=== PATIENT | female | born 1945 | race Caucasian/White ===

== ENCOUNTER 2022-01-11 07:35 | Outpatient (CLI) | payer OTHER, MEDICARE, SELFPAY ==
[2022-01-11 08:19] LABS: Anion Gap 6 mmol/L (8-16); Blood Urea Nitrogen 16 mg/dL (7-17); Calcium 9.7 mg/dL (8.4-10.2); Carbon Dioxide 29 mmol/L (22-30); Chloride 103 mmol/L (98-107); Estimated Glomerular Filt Rate 54; Glucose 121 mg/dL (65-110); Potassium 3.7 mmol/L (3.4-5.0); Sodium 138 mmol/L (137-145)
== END 2022-01-11 07:36 | disposition home or self-care (01) ==
PROVIDERS: Anesthesiology; PCP Family Medicine; Visit Provider Plastic Surgery
DX: Z01.812 Encounter for preprocedural laboratory examination (principal); Z51.81 Encounter for therapeutic drug level monitoring; Z79.899 Other long term (current) drug therapy
CPT/HCPCS: 36415; 80048

== ENCOUNTER 2022-01-13 00:14 | Day surgery (SDC) | payer OTHER, MEDICARE, SELFPAY ==
[2022-01-07 10:52] VITALS: BMI 32.3
--- NOTE | 2022-01-12 13:38 | WPDANESEPPF ---
Anes - Initial Pre Proc Eval Procedure: Operation Date: 01/13/22 07:30 Proposed Procedures p Excision of Basal Cell Carcinoma Left Forehead with Frozen Section, Possible Full Thickness Skin Graft or Local Tissue Transfer - Kevin Pedro MD Date/Time: 01/12/22 13:38 Surgeon: Kevin Pedro MD Pre Op Diagnosis: basal cell carcinoma left forehead Patient Data Age: 76 Gender: F Height: 1.68 m Weight: 90.9 kg Allergies Allergy/AdvReac Type Severity Reaction Status Date / Time No Known Allergies Allergy Verified 01/13/22 06:40 Home Medications Medication Instructions Recorded Confirmed Type amoxicillin 875 mg-potassium 1 tablet DAILY 01/07/22 01/07/22 History clavulanate 125 mg tablet carvedilol 12.5 mg tablet 2 tablet BID 01/07/22 01/07/22 History lorazepam 0.5 mg tablet 2 tablet BID 01/07/22 01/13/22 History meloxicam 15 mg tablet 1 tablet QA 01/07/22 01/07/22 History montelukast 10 mg tablet 1 tablet HS 01/07/22 01/07/22 History olmesartan 40 1 tablet HS 01/07/22 01/07/22 History mg-hydrochlorothiazide 25 mg tablet sertraline 100 mg tablet 2 tablet HS 01/07/22 01/07/22 History tramadol 50 mg tablet 50 - 100 mg PO Q6H PRN pain #8 tabs 01/13/22 Rx Patient hx anesthesia problems: none Family hx anesthesia problems: none Results Review: All pre-operative results and documents have been reviewed as part of the pre-operative evaluation. [facility] Past Medical History Medical History (Updated 01/12/22 @ 13:40 by Evelio Turner MD) Arthritis HTN (hypertension) Obesity Seizure Social History Social History Smoking status: Never smoker Second hand tobacco smoke exposure: No Alcohol intake: never Substance use: never Substance use type: does not use Additional living arrangements comments: LIVES WITH SISTER & MOTHER Spiritual care concerns: No Anes - Eval Final PreProcedure Day of Procedure 01/12/22 13:38 Patient weight: obese Heart: regular rate and rhythm Lungs: clear to auscultation and normal air movement Airway: Mallampati scale class II Neurological: alert and oriented Last oral intake: >/= 8 hours ASA classification: III Emergent: no Anesthetic plan: proceed Anesthesia type and monitoring: general GIVS and LMA Results Review: All pre-operative results and documents have been reviewed as part of the pre-operative evaluation. Informed Consent: The patient's anesthetic plan and its attendant risks and benefits were discussed with the patient/family/POA. Questions were solicited and answers provided to the satisfaction of the patient/family/POA.
[2022-01-13 06:49] VITALS: BP 129/71; PULSE 81; RESP 14; TEMP 36.9; O2SAT 97
[2022-01-13] MEDS: LACTATED RINGERS 1,000 ML 30 ML IV CONT ×2 (06:55→10:01)
[2022-01-13] MEDS: SCOPOLAMINE 1.5 MG PATCH TRANSDERM (07:11)
--- NOTE | 2022-01-13 07:14 | WPDHPUPDATE1 ---
History and Physical Update Update Date/Time: 01/13/22 07:14 History and Physical has been reviewed, including an updated exam of the patient. There are NO changes in the patient's condition. Risks, benefits, and alternatives have been discussed and questions answered. Patient agrees to proceed with procedure.
[2022-01-13] MEDS: BACITRACIN OINTMENT 15 GM TUBE 1 APPLIC TOPICAL (07:25)
[2022-01-13] MEDS: LIDO 2%/EPINEPHRINE 1:100,000 20 ML VIAL INFILTRATE (07:25)
[2022-01-13 10:01] VITALS: BP 113/69; PULSE 80; RESP 12; O2SAT 92
[2022-01-13 10:30] VITALS: BP 119/65; PULSE 74; RESP 12; O2SAT 93
[2022-01-13 11:00] VITALS: BP 126/76; PULSE 80; RESP 16
[2022-01-13 11:30] VITALS: BP 127/70; PULSE 78; RESP 16; O2SAT 94
[2022-01-13 11:50] VITALS: BP 116/69; PULSE 87; RESP 16; O2SAT 97
--- NOTE | 2022-01-13 12:38 | P.OP_ITS ---
Procedure Note - Detailed Date of Procedure 01/13/22 Pre-op Diagnosis basal cell carcinoma left forehead Post-op Diagnosis Same Procedure Performed 4 cm excision of basal cell carcinoma left forehead with frozen section x3 and complex repair 5 cm. Surgeon Kevin Pedro MD [employer] M[employer]IN Description of Procedure The site on the left forehead was marked in the holding area. We also marked the left-sided neck for possible skin graft donor. She was taken to the operati ng room placed supine on the operating table a time-out was held confirmed. She was given IV sedation face and neck were prepped draped usual fashion. The obvious tumor area was marked carefully with a pen allowing about 4 mm of margin possibly. This area was widely infiltrated with 1% lidocaine with epinephrine. Some time was allowed for hemostatic effect. The circular ellipse of skin and subcutaneous tissue with muscle fascia was excised. Was marked at its cephalad aspect with a suture for 12:00 p.m. and sent to pathology for frozen section. The pathologist revealed that our peripheral margins were free but the deep margin was positive. It was thought that this was directly in the middle of the specimen site. The frontalis was split to try to remove a segment of frontalis directly in the middle of this wound. The specimen was approximately a cm in width. It was taken from the periosteum. The cephalad aspect was marked with a suture with 1 tail for 12 o'clock. The medial aspect at 9:00 o'clock marked with a suture with 2 tails. The specimen was sent for frozen. Pathologist revealed that all margins were free. I had concern for an additional area on the frontalis and we sent a small piece taken by scissors for frozen section of that. The pathologist thought that this did not show any tumor but reminded me that there will be permanent sections. He said he had e nough tissue for that. We elected to close this wound directly leaving it the tissue with lax enough that the distortions would be improved with time. The cephalad skin was extensively undermined over 4cm off the frontalis. This was dissected medially and laterally as well. There was no dissection proximally. We were able to close this then with intradermal 3-0 Vicryl and running 5 0 nylon. Estimated Blood Loss 6 Pathology Yes Complications No immediate complications Condition Stable Disposition Same day
== END 2022-01-13 12:21 | disposition home or self-care (01) ==
PROVIDERS: PCP Family Medicine; Visit Provider Plastic Surgery
PROC: (CPT 11644; principal; 2022-01-13 07:30)
DX: C44.319 Basal cell carcinoma of skin of other parts of face (principal); I10 Essential (primary) hypertension; E66.9 Obesity, unspecified; Z68.33 Body mass index [BMI] 33.0-33.9, adult
CPT/HCPCS: 11644; 13132; 36415; 80048; 88305; 88331; 88332; A9270; J1100; J2250; J2405; J2704; J3010; J7120